=== PATIENT | female | born 1950 | race African-American/Black ===

== ENCOUNTER → 2020-11-01 11:02 | Outpatient (CLI) | payer OTHER, SELFPAY ==
--- NOTE | ~2020-11-01 | US_ITS ---
US pelvic complete w TV DATE: 11/01/2020 11:23 INDICATION: Postmenopausal bleeding TECHNIQUE: Real-time imaging via transabdominal and transvaginal approaches COMPARISON: None FINDINGS: The uterus measures 14.5 cm height, 9.2 cm anteroposterior and 9.3 cm transverse dimension. There is a large irregular soft tissue density and a prominent amount of fluid within the endometria l cavity of the uterus. Large irregular endometrial malignancy measuring up to 6 cm dimension is stro ngly suggested. The ovaries are not visualized. No free pelvic fluid collection is evident. IMPRESSION: Large irregular mass and a large fluid collection within the endometrial cavity suggestin g endometrial malignancy Dr. Bermeo telephoned on 11/01/2020 at 1828 hours the emergency exchange and gave the report to Dr. Stephanie moraes upon her return phone call at 1833 hours. Reviewed, dictated and finalized at [facility]. Reviewed, dictated and finalized at [facility]. [employer] IMPRESSION: Large irregular mass and a large fluid collection within the endome trial cavity suggesting endometrial malignancy Dr. Bermeo telephoned on 11/01/2020 at 1828 hours the emergency exchange and gave the report to Dr. Cortes upon her return phone call at 1833 hours.
== END ==
PROVIDERS: Visit Provider Student in an Organized Health Care Education/Training Program
DX: N95.0 Postmenopausal bleeding (principal)
CPT/HCPCS: 76830; 76856